=== PATIENT | female | born 1980 | race Caucasian/White ===

== ENCOUNTER → 2020-05-29 | Outpatient (CLI) | payer BC ==
[2020-05-29 17:22] LABS: HEMOGLOBIN 14.1 gm/dl (12.3-15.3); RED BLOOD COUNT 4.58 M/UL (4.00-5.10); WHITE BLOOD COUNT 13.4 K/UL (4.5-11.0)
[2020-05-29 17:41] LABS: BUN/CREATININE RATIO 21 (0-10)
[2020-05-31 07:10] LABS: COMPLEMENT C3, SERUM 102 mg/dL (82-167); COMPLEMENT C4, SERUM 21 mg/dL (12-38); RHEUMATOID ARTHRITIS FACTOR <10.0 IU/mL (0.0-13.9)
[2020-06-02 16:11] LABS: ANTI-CENTROMERE B ANTIBODIES <0.2 AI (0.0-0.9); ANTI-DNA (DS) AB QN <1 IU/mL (0-9); ANTI-JO-1 <0.2 AI (0.0-0.9); ANTICHROMATIN ANTIBODIES 0.3 AI (0.0-0.9); ANTIRIBOSOMAL P ANTIBODIES 0.4 AI (0.0-0.9); ANTISCLERODERMA-70 ANTIBODIES <0.2 AI (0.0-0.9); RNP ANTIBODIES 0.4 AI (0.0-0.9); SJOGREN'S ANTI-SS-A 0.2 AI (0.0-0.9); SJOGREN'S ANTI-SS-B <0.2 AI (0.0-0.9); SMITH ANTIBODIES 0.2 AI (0.0-0.9); SMITH/RNP ANTIBODIES <0.2 AI (0.0-0.9)
== END ==
LOC: LAB 16:34
PROVIDERS: Nurse Practitioner
DX: L40.9 Psoriasis, unspecified (principal); M25.541 Pain in joints of right hand; M25.571 Pain in right ankle and joints of right foot; M25.542 Pain in joints of left hand; M25.572 Pain in left ankle and joints of left foot
CPT/HCPCS: 36415; 73110; 73130; 73610; 73630; 80053; 83516; 84439; 84443; 85025; 85652; 86038; 86160; 86431